=== PATIENT | male | born 1945 | race African-American/Black ===

== ENCOUNTER 2017-12-21 10:17 | Inpatient (IN) | payer MEDICARE, BC ==
[~2017-12-21] VITALS: Ht 182.9 cm; Wt 102.5 kg
[2017-12-21 11:08] LABS: HEMATOCRIT. 31.7 % (42.0-52.0); HEMOGLOBIN. 10.4 g/dL (14.0-18.0); MEAN CORPUSCULAR HEMOGLOBIN 30.9 pg (28.0-32.0); MEAN CORPUSCULAR VOLUME 93.9 fL (80.0-94.0); MEAN PLATELET VOLUME 6.4 fl (7.4-10.4); PLATELET 176 x1000/uL (130-400); RED BLOOD CELL COUNT 3.37 mill/uL (4.7-6.1); RED CELL DISTRIBUTION WIDTH 15.5 % (11.6-14.6)
[2017-12-21 11:15] LABS: INR 1.1; PROTHROMBIN TIME 11.7 sec (9.4-11.6)
[2017-12-21 11:20] LABS: CHLORIDE 82 mEq/L (98-107)
[2017-12-21 11:25] LABS: TROPONIN I < 0.02 ng/mL (0.00-0.04)
[2017-12-21 11:43] LABS: PLATELET ESTIMATE NORMAL
[2017-12-21] MEDS ORDERED: SODIUM CHLORIDE 0.9% 1,000 ML IV ONE (11:48)
[2017-12-21] MEDS ORDERED: IPRATROPIUM BROMIDE (0.02%) 0.5MG/2.5ML NEB HHN STA (11:48)
[2017-12-21] MEDS ORDERED: METHYLPREDNISOLONE SOD SUCC 125 MG/2 ML VIAL IV STA (11:48)
[2017-12-21] MEDS ORDERED: ALBUTEROL (0.083%) 2.5MG/3ML NEB HHN SCH (12:00)
[2017-12-21] MEDS ORDERED: TRAMADOL 50MG TABLET PO PRN (12:30)
[2017-12-21] MEDS ORDERED: ACETAMINOPHEN 325MG TABLET PO PRN (12:30)
[2017-12-21] MEDS ORDERED: IPRATROPIUM/ALBUTEROL 0.5-3(2.5)MG/3ML NEB INH PRN (12:30)
[2017-12-21] MEDS ORDERED: LORAZEPAM 0.5MG TABLET PO PRN (12:30)
[2017-12-21] MEDS ORDERED: MORPHINE SULFATE 4 MG/ML CPJ (NOT FOR IM USE) IV PRN (12:30)
[2017-12-21] MEDS ORDERED: LEVOFLOXACIN 500MG PREMIX 100 ML IV SCH (12:30)
[2017-12-21] MEDS ORDERED: DIPHENHYDRAMINE 50MG/ML VIAL IV PRN (12:30)
[2017-12-21] MEDS ORDERED: DOCUSATE SODIUM 100MG CAPSULE PO PRN (12:30)
[2017-12-21] MEDS ORDERED: MAGNESIUM 2 G PREMIX 50 ML IV ONE (12:30)
[2017-12-21] MEDS ORDERED: GUAIFENESIN 200MG/10ML SUGAR FREE UDC PO PRN (12:30)
[2017-12-21] MEDS ORDERED: MAGNESIUM/ALUMINUM HYDROXIDE/SIMETHICONE 30ML UDC PO PRN (12:30)
[2017-12-21] MEDS ORDERED: ONDANSETRON HCL 4MG/2ML VIAL IV PRN (12:30)
[2017-12-21 13:46] LABS: T4 FREE 1.21 ng/dL (0.76-1.46)
[2017-12-21 14:13] LABS: VITAMIN B12 SERUM 267 pg/mL (211-911)
[2017-12-21 14:24] LABS: FOLIC ACID (FOLATE) SERUM > 20.00 ng/mL (>5.38)
[2017-12-21] MEDS ORDERED: IOHEXOL-350 100 ML BOTTLE ONE (15:05)
[2017-12-21 16:48] LABS: BG BASE EXCESS -1.4 mmol/L (-2.0-2.0); BG CARBOXYHEMOGLOBIN 0.4 % (0.5-1.5); BG DEOXYHEMOGLOBIN 2.9 % (0.0-5.0); BG FRACTION INSPIRED OXYGEN 28; BG HCO3 ACT 22.2 mmol/L (22.0-26.0); BG METHEMOGLOBIN 0.3 % (0.0-1.5); BG OXYGEN SATURATION 97.1 % (92.0-98.5); BG OXYHEMOGLOBIN 96.4 % (94.0-97.0); BG PCO2 33.4 mmHg (35.0-45.0); BG PH 7.441 (7.350-7.450); BG PO2 97.5 mmHg (75.0-100.0); BG SAMPLE SITE RIGHT BRACHIAL; BG TOTAL HEMOGLOBIN 11.1 g/dL (12.0-18.0); BG VENT MODE NASAL CANNULA
[2017-12-21] MEDS ORDERED: NICOTINE 21MG PATCH TD SCH (17:00)
[2017-12-21 17:10] LABS: CREATINE KINASE 440 IU/L (39-308); CREATINE KINASE MB FRACTION 12.6 ng/mL (0.5-3.6); TROPONIN I < 0.02 ng/mL (0.00-0.04)
[2017-12-21 17:33] LABS: HEPATITIS B SURFACE ANTIGEN NEGATIVE
[2017-12-21 17:35] VITALS: BP 157/93
[2017-12-21 18:01] LABS: HEPATITIS B CORE AB IGM NEGATIVE
[2017-12-21 18:02] LABS: HEPATITIS A AB IGM NEGATIVE (NEGATIVE)
[2017-12-21] MEDS: METHYLPREDNISOLONE SOD SUCC 125 MG/2 ML VIAL IV SCH (18:41)
[2017-12-21] MEDS: ENOXAPARIN 40MG/0.4ML SYR SUBCUT SCH (18:43)
[2017-12-21] MEDS: DILTIAZEM HCL 60MG TABLET PO SCH (18:43)
[2017-12-21 20:00] VITALS: BP 139/84
[2017-12-21] MEDS: IPRATROPIUM/ALBUTEROL 0.5-3(2.5)MG/3ML NEB HHN SCH (21:13)
[2017-12-21] MEDS: CEFEPIME 2,000 MG in DEXT 5% WATER 100 ML IV SCH (21:27)
[2017-12-21] MEDS: ZOLPIDEM TARTRATE 5MG TABLET PO PRN (21:28)
[2017-12-21] MEDS: FAMOTIDINE 20MG/2ML VIAL IV SCH (21:28)
[2017-12-21] MEDS: GUAIFENESIN/DM 600MG/30MG ER TAB 12HR PO SCH (21:29)
[2017-12-21] MEDS: NICOTINE 21MG PATCH TD SCH (21:29)
[2017-12-21] MEDS: METRONIDAZOLE 500 MG PREMIX 100 ML IV SCH (22:43)
[2017-12-21 23:54] VITALS: BP 126/58
[2017-12-22 00:18] LABS: CREATINE KINASE 400 IU/L (39-308); CREATINE KINASE MB FRACTION 11.9 ng/mL (0.5-3.6); TROPONIN I < 0.02 ng/mL (0.00-0.04)
[2017-12-22] MEDS: IPRATROPIUM/ALBUTEROL 0.5-3(2.5)MG/3ML NEB HHN SCH ×7 (00:27→23:42)
[2017-12-22] MEDS: DILTIAZEM HCL 60MG TABLET PO SCH ×5 (01:45→23:28)
[2017-12-22] MEDS: METHYLPREDNISOLONE SOD SUCC 125 MG/2 ML VIAL IV SCH ×4 (01:46→23:24)
[2017-12-22 04:00] VITALS: BP 135/45
[2017-12-22] MEDS: METRONIDAZOLE 500 MG PREMIX 100 ML IV SCH ×3 (05:31→23:21)
[2017-12-22 07:31] LABS: CLARITY URINE CLEAR (CLEAR); COLOR URINE YELLOW (YELLOW); KETONES URINE NEGATIVE (NEGATIVE); LEUKOCYTE ESTERASE URINE NEGATIVE (NEGATIVE); NITRITE URINE NEGATIVE (NEGATIVE); OCCULT BLOOD URINE NEGATIVE (NEGATIVE); PROTEIN URINE NEGATIVE (NEGATIVE); SPECIFIC GRAVITY URINE 1.024 (1.005-1.030); UROBILINOGEN URINE 0.2 E.U./dL (0.2-1.0)
[2017-12-22 08:00] VITALS: BP 145/67
[2017-12-22 08:15] LABS: *AMPHETAMINES SCREEN URINE NEGATIVE (NEGATIVE); *BARBITURATES SCREEN URINE NEGATIVE (NEGATIVE); *BENZODIAZEPINES SCREEN URINE NEGATIVE (NEGATIVE); *COCAINE SCREEN URINE NEGATIVE (NEGATIVE); CANNABINOID URINE SCREEN NEGATIVE (NEGATIVE); METHADONE URINE SCREEN NEGATIVE (NEGATIVE); OPIATES URINE SCREEN NEGATIVE (NEGATIVE); PHENCYCLIDINE URINE SCREEN NEGATIVE (NEGATIVE)
[2017-12-22] MEDS: NICOTINE 21MG PATCH TD SCH (08:25)
[2017-12-22] MEDS: CEFEPIME 2,000 MG in DEXT 5% WATER 100 ML IV SCH ×2 (08:25→22:17)
[2017-12-22] MEDS: ASPIRIN 325MG EC TABLET PO SCH (08:27)
[2017-12-22] MEDS: FAMOTIDINE 20MG/2ML VIAL IV SCH ×2 (08:27→20:44)
[2017-12-22] MEDS: GUAIFENESIN/DM 600MG/30MG ER TAB 12HR PO SCH ×2 (08:27→20:44)
[2017-12-22 12:00] VITALS: BP 143/73
[2017-12-22] MEDS ORDERED: DEXTROSE 50% WATER 50ML SYRINGE IV PRN (12:00)
[2017-12-22] MEDS: BLOOD SUGAR DIAGNOSTIC STRIP TEST SCH ×3 (12:17→20:53)
[2017-12-22] MEDS: INSULIN LISPRO 100 UNITS/ML SUBCUT SCH ×3 (12:18→20:53)
[2017-12-22] MEDS ORDERED: IPRATROPIUM/ALBUTEROL 0.5-3(2.5)MG/3ML NEB INH SCH (14:30)
[2017-12-22] MEDS ORDERED: TERBUTALINE SULFATE 1MG/ML VIAL SUBCUT NR (14:30)
[2017-12-22 16:00] VITALS: BP 148/67
[2017-12-22] MEDS: ENOXAPARIN 40MG/0.4ML SYR SUBCUT SCH (17:37)
[2017-12-22] MEDS ORDERED: METHYLPREDNISOLONE SOD SUCC 40 MG/ML VIAL IV SCH (18:00)
[2017-12-22] MEDS ORDERED: LORA1TAB PO (18:38)
[2017-12-22] MEDS ORDERED: METO-539 PO (18:38)
[2017-12-22] MEDS ORDERED: OMEP40CA34 PO (18:38)
[2017-12-22] MEDS ORDERED: HYDR100T26 PO (18:38)
[2017-12-22] MEDS ORDERED: VALS320T2 PO (18:38)
[2017-12-22] MEDS ORDERED: GABA-290 PO (18:38)
[2017-12-22] MEDS ORDERED: DOXA8TAB81 PO (18:38)
[2017-12-22] MEDS ORDERED: CLAR10 PO (18:38)
[2017-12-22] MEDS ORDERED: HYDR25TA PO (18:38)
[2017-12-22] MEDS ORDERED: METF10002 PO (18:38)
[2017-12-22 19:56] VITALS: BP 124/61
[2017-12-22] MEDS ORDERED: FUROSEMIDE 100MG/10ML VIAL IVP SCH (20:00)
[2017-12-22] MEDS: ZOLPIDEM TARTRATE 5MG TABLET PO PRN (20:44)
[2017-12-22] MEDS: FUROSEMIDE 20MG/2ML VIAL IVP SCH (20:44)
[2017-12-22 23:45] VITALS: BP 136/71
[2017-12-23] MEDS ORDERED: MAGNESIUM 2 G PREMIX 50 ML IV NR (02:00)
[2017-12-23] MEDS: IPRATROPIUM/ALBUTEROL 0.5-3(2.5)MG/3ML NEB HHN SCH ×5 (03:37→20:44)
[2017-12-23 04:00] VITALS: BP 145/67
[2017-12-23] MEDS: METHYLPREDNISOLONE SOD SUCC 125 MG/2 ML VIAL IV SCH ×3 (05:50→18:26)
[2017-12-23] MEDS: DILTIAZEM HCL 60MG TABLET PO SCH ×3 (05:51→18:26)
[2017-12-23] MEDS: SPIRONOLACTONE 25MG TABLET PO SCH ×2 (05:51→18:26)
[2017-12-23] MEDS: BLOOD SUGAR DIAGNOSTIC STRIP TEST SCH ×4 (05:58→20:14)
[2017-12-23 06:38] LABS: HEMOGLOBIN. 10.3 g/dL (14.0-18.0); MEAN CORPUSCULAR HEMOGLOBIN 31.9 pg (28.0-32.0); MEAN CORPUSCULAR VOLUME 93.1 fL (80.0-94.0); MEAN PLATELET VOLUME 6.8 fl (7.4-10.4); PLATELET 168 x1000/uL (130-400); RED BLOOD CELL COUNT 3.22 mill/uL (4.7-6.1); RED CELL DISTRIBUTION WIDTH 15.4 % (11.6-14.6)
[2017-12-23 07:18] LABS: CHLORIDE 84 mEq/L (98-107)
[2017-12-23 08:20] VITALS: BP 131/66
[2017-12-23] MEDS: ASPIRIN 325MG EC TABLET PO SCH (08:43)
[2017-12-23] MEDS: GUAIFENESIN/DM 600MG/30MG ER TAB 12HR PO SCH ×2 (08:43→20:21)
[2017-12-23] MEDS: METRONIDAZOLE 500 MG PREMIX 100 ML IV SCH ×3 (08:45→21:18)
[2017-12-23] MEDS: FAMOTIDINE 20MG/2ML VIAL IV SCH ×2 (08:45→20:21)
[2017-12-23] MEDS: INSULIN LISPRO 100 UNITS/ML SUBCUT SCH ×4 (08:45→20:22)
[2017-12-23] MEDS: FUROSEMIDE 20MG/2ML VIAL IVP SCH ×2 (08:45→20:21)
[2017-12-23] MEDS: NICOTINE 21MG PATCH TD SCH (09:00)
[2017-12-23] MEDS: CEFEPIME 2,000 MG in DEXT 5% WATER 100 ML IV SCH ×2 (10:06→23:07)
[2017-12-23 10:28] LABS: PLATELET ESTIMATE NORMAL
[2017-12-23 12:35] VITALS: BP 133/70
[2017-12-23] MEDS ORDERED: TERBUTALINE SULFATE 1MG/ML VIAL SUBCUT NR (12:45)
[2017-12-23 17:29] VITALS: BP 152/77
[2017-12-23] MEDS: ENOXAPARIN 40MG/0.4ML SYR SUBCUT SCH (18:26)
[2017-12-23 20:00] VITALS: BP 132/74
[2017-12-24] VITALS: BP 130/49
[2017-12-24] MEDS: IPRATROPIUM/ALBUTEROL 0.5-3(2.5)MG/3ML NEB HHN SCH ×6 (00:10→21:51)
[2017-12-24] MEDS: METHYLPREDNISOLONE SOD SUCC 125 MG/2 ML VIAL IV SCH ×5 (00:41→23:55)
[2017-12-24] MEDS: DILTIAZEM HCL 60MG TABLET PO SCH ×5 (00:41→23:55)
[2017-12-24] MEDS: ZOLPIDEM TARTRATE 5MG TABLET PO PRN ×2 (00:46→23:55)
[2017-12-24 04:00] VITALS: BP 134/65
[2017-12-24] MEDS: SPIRONOLACTONE 25MG TABLET PO SCH ×2 (05:41→18:06)
[2017-12-24] MEDS: METRONIDAZOLE 500 MG PREMIX 100 ML IV SCH ×3 (05:41→21:04)
[2017-12-24 07:39] VITALS: BP 124/58
[2017-12-24] MEDS: BLOOD SUGAR DIAGNOSTIC STRIP TEST SCH ×4 (07:40→20:31)
[2017-12-24] MEDS: GUAIFENESIN/DM 600MG/30MG ER TAB 12HR PO SCH ×2 (10:07→20:31)
[2017-12-24] MEDS: ASPIRIN 325MG EC TABLET PO SCH (10:07)
[2017-12-24] MEDS: INSULIN LISPRO 100 UNITS/ML SUBCUT SCH ×4 (10:08→20:31)
[2017-12-24] MEDS: FAMOTIDINE 20MG/2ML VIAL IV SCH ×2 (10:56→20:31)
[2017-12-24] MEDS: CEFEPIME 2,000 MG in DEXT 5% WATER 100 ML IV SCH ×2 (10:56→23:01)
[2017-12-24] MEDS: FUROSEMIDE 20MG/2ML VIAL IVP SCH ×2 (10:56→20:31)
[2017-12-24 11:53] VITALS: BP 141/83
[2017-12-24] MEDS: NICOTINE 21MG PATCH TD SCH (12:33)
[2017-12-24 16:01] VITALS: BP 142/61
[2017-12-24] MEDS: ENOXAPARIN 40MG/0.4ML SYR SUBCUT SCH (18:06)
[2017-12-24 20:00] VITALS: BP 158/85
[2017-12-25] VITALS (7 sets, daily range): BP systolic 144–170; BP diastolic 69–92
[2017-12-25] MEDS: IPRATROPIUM/ALBUTEROL 0.5-3(2.5)MG/3ML NEB HHN SCH ×6 (00:19→21:12)
[2017-12-25] MEDS: METRONIDAZOLE 500 MG PREMIX 100 ML IV SCH ×3 (05:01→21:38)
[2017-12-25] MEDS: METHYLPREDNISOLONE SOD SUCC 125 MG/2 ML VIAL IV SCH ×2 (05:01→13:13)
[2017-12-25] MEDS: DILTIAZEM HCL 60MG TABLET PO SCH ×3 (05:02→18:40)
[2017-12-25] MEDS: SPIRONOLACTONE 25MG TABLET PO SCH ×2 (05:02→18:39)
[2017-12-25] MEDS: BLOOD SUGAR DIAGNOSTIC STRIP TEST SCH ×4 (07:40→21:34)
[2017-12-25] MEDS: FAMOTIDINE 20MG/2ML VIAL IV SCH ×2 (08:39→21:38)
[2017-12-25] MEDS: ASPIRIN 325MG EC TABLET PO SCH (08:40)
[2017-12-25] MEDS: NICOTINE 21MG PATCH TD SCH (08:40)
[2017-12-25] MEDS: FUROSEMIDE 20MG/2ML VIAL IVP SCH ×2 (08:40→21:38)
[2017-12-25] MEDS: GUAIFENESIN/DM 600MG/30MG ER TAB 12HR PO SCH ×2 (08:40→21:38)
[2017-12-25] MEDS: INSULIN LISPRO 100 UNITS/ML SUBCUT SCH ×4 (08:41→22:06)
[2017-12-25] MEDS: CEFEPIME 2,000 MG in DEXT 5% WATER 100 ML IV SCH ×2 (10:52→22:55)
[2017-12-25] MEDS: CLONIDINE 0.1MG TABLET PO PRN (17:27)
[2017-12-25] MEDS: ENOXAPARIN 40MG/0.4ML SYR SUBCUT SCH (18:40)
[2017-12-25] MEDS: METHYLPREDNISOLONE SOD SUCC 40 MG/ML VIAL IV SCH (22:06)
[2017-12-26] VITALS: BP 169/95
[2017-12-26] MEDS: DILTIAZEM HCL 60MG TABLET PO SCH ×3 (00:33→13:35)
[2017-12-26] MEDS: ZOLPIDEM TARTRATE 5MG TABLET PO PRN (00:33)
[2017-12-26] MEDS: IPRATROPIUM/ALBUTEROL 0.5-3(2.5)MG/3ML NEB HHN SCH ×4 (01:00→12:18)
[2017-12-26 04:00] VITALS: BP 146/78
[2017-12-26] MEDS: ACETYLCYSTEINE 100MG/ML 10% VIAL 4ML INH SCH ×3 (04:53→15:59)
[2017-12-26] MEDS: CEFEPIME 2,000 MG in DEXT 5% WATER 100 ML IV SCH (06:19)
[2017-12-26] MEDS: METRONIDAZOLE 500 MG PREMIX 100 ML IV SCH ×2 (06:19→13:36)
[2017-12-26] MEDS: SPIRONOLACTONE 25MG TABLET PO SCH (06:20)
[2017-12-26] MEDS: BLOOD SUGAR DIAGNOSTIC STRIP TEST SCH ×2 (06:20→13:17)
[2017-12-26] MEDS: METHYLPREDNISOLONE SOD SUCC 40 MG/ML VIAL IV SCH ×2 (06:23→13:36)
[2017-12-26 08:19] VITALS: BP 161/81
[2017-12-26] MEDS: FUROSEMIDE 20MG/2ML VIAL IVP SCH (09:23)
[2017-12-26] MEDS: CLONIDINE 0.1MG TABLET PO PRN (09:24)
[2017-12-26] MEDS: ASPIRIN 325MG EC TABLET PO SCH (09:24)
[2017-12-26] MEDS: FAMOTIDINE 20MG/2ML VIAL IV SCH (09:24)
[2017-12-26] MEDS: GUAIFENESIN/DM 600MG/30MG ER TAB 12HR PO SCH (09:24)
[2017-12-26] MEDS: INSULIN LISPRO 100 UNITS/ML SUBCUT SCH ×2 (09:26→13:36)
[2017-12-26] MEDS: NICOTINE 21MG PATCH TD SCH (09:33)
[2017-12-26 12:19] LABS: CHLORIDE 84 mEq/L (98-107)
[2017-12-26 12:25] VITALS: BP 127/67
[2017-12-26 13:57] VITALS: BP 154/91
[2017-12-26 16:15] VITALS: BP 154/91
[2017-12-27] MEDS ORDERED: PREDNISONE 20MG TABLET PO SCH (09:00)
== END 2017-12-26 16:52 | disposition home or self-care (01) | DRG 871 ==
LOC: ER 10:23 → SUPCPDRO 12:21 → 7WST 12:22 → ENRESERV 15:43
PROVIDERS: ADMIT Internal Medicine; ATTEND Internal Medicine
DX: A41.9 Sepsis, unspecified organism (principal); J96.00 Acute respiratory failure, unspecified whether with hypoxia or hypercapnia; J18.9 Pneumonia, unspecified organism; E87.3 Alkalosis; I11.0 Hypertensive heart disease with heart failure; D64.9 Anemia, unspecified; I50.40 Unspecified combined systolic (congestive) and diastolic (congestive) heart failure; E11.9 Type 2 diabetes mellitus without complications; E44.1 Mild protein-calorie malnutrition; E87.1 Hypo-osmolality and hyponatremia; J44.0 Chronic obstructive pulmonary disease with (acute) lower respiratory infection; J44.1 Chronic obstructive pulmonary disease with (acute) exacerbation; E66.9 Obesity, unspecified; E83.52 Hypercalcemia; F17.210 Nicotine dependence, cigarettes, uncomplicated; Z79.4 Long term (current) use of insulin; Z68.30 Body mass index [BMI] 30.0-30.9, adult
CPT/HCPCS: 36415; 36600; 71045; 71275; 80053; 80061; 80305; 81003; 82375; 82550; 82553; 82607; 82746; 82805; 82962; 83036; 83540; 83550; 83735; 83880; 84439; 84443; 84484; 85025; 85610; 86705; 86709; 86803; 87186; 87340; 93005; 93306; 93970; 94640; 96365; 96366; 96375; 97116; 97162; 97535; 99285; J0692; J1650; J1815; J1940; J1956; J2920; J2930; J3105; J3475; J3490; J7030; J7050; J7060; J7608; J7611; J7620; Q9967

== ENCOUNTER → 2018-03-14 | Outpatient (CLI) | payer MEDICARE, BC ==
[~2018-03-14] MED LIST: ALBUTEROL (0.083%) 2.5MG/3ML NEB ONE; CLAR10 PO; DOXA8TAB81 PO; GABA-290 PO; HYDR100T26 PO; HYDR25TA PO; LORA1TAB PO; METF10004 PO; METO-539 PO; OMEP40CA34 PO; VALS320T2 PO
== END | disposition home or self-care (01) ==
LOC: PF 13:15
PROVIDERS: ATTEND Specialist
DX: E04.2 Nontoxic multinodular goiter (principal)
CPT/HCPCS: 94060; 94727; 94729; J7611

== ENCOUNTER 2018-05-13 20:48 | Inpatient (IN) | payer MEDICARE, BC ==
[~2018-05-13] VITALS: Ht 182.9 cm; Wt 104.3 kg
[~2018-05-13 20:48] MED LIST changes: -ALBUTEROL (0.083%) 2.5MG/3ML NEB ONE
[2018-05-13] MEDS ORDERED: LEVOFLOXACIN 750MG PREMIX 150 ML IV ONE (21:30)
[2018-05-13] MEDS ORDERED: SODIUM CHLORIDE 0.9% 1000ML BAG (SEPSIS BOLUS) IV ONE (21:30)
[2018-05-13] MEDS ORDERED: ACETAMINOPHEN 325MG TABLET PO ONE (21:30)
[2018-05-13 22:00] LABS: BASOPHILS % 0.3 % (0.0-2.0); EOSINOPHILS % 0.1 % (0.0-5.0); HEMATOCRIT. 27.3 % (42.0-52.0); HEMOGLOBIN. 8.9 g/dL (14.0-18.0); LYMPHOCYTES % 7.5 % (20.0-50.0); MEAN CORPUSCULAR HEMOGLOBIN 29.4 pg (28.0-32.0); MEAN CORPUSCULAR VOLUME 90.3 fL (80.0-94.0); MEAN PLATELET VOLUME 7.1 fl (7.4-10.4); MONOCYTES % 6.4 % (2.0-8.0); NEUTROPHILS % 85.7 % (40.0-76.0); PLATELET 256 x1000/uL (130-400); RED BLOOD CELL COUNT 3.03 mill/uL (4.7-6.1); RED CELL DISTRIBUTION WIDTH 14.8 % (11.6-14.6)
[2018-05-13 22:07] LABS: CHLORIDE 102 mEq/L (98-107)
[2018-05-13 22:09] LABS: INR 1.2; PARTIAL THROMBOPLASTIN TIME 30.1 sec (23.4-31.0); PROTHROMBIN TIME 12.4 sec (9.4-11.6)
[2018-05-13 22:58] LABS: CLARITY URINE CLOUDY (CLEAR); COLOR URINE YELLOW (YELLOW); KETONES URINE NEGATIVE (NEGATIVE); LEUKOCYTE ESTERASE URINE 3+ (NEGATIVE); NITRITE URINE NEGATIVE (NEGATIVE); OCCULT BLOOD URINE 1+ (NEGATIVE); PROTEIN URINE NEGATIVE (NEGATIVE); SPECIFIC GRAVITY URINE 1.012 (1.005-1.030); UROBILINOGEN URINE 0.2 E.U./dL (0.2-1.0)
[2018-05-14] MEDS ORDERED: DIPHENHYDRAMINE 50MG/ML VIAL IV PRN (03:30)
[2018-05-14] MEDS ORDERED: ONDANSETRON HCL 4MG/2ML VIAL IV PRN (03:30)
[2018-05-14] MEDS ORDERED: LEVOFLOXACIN 500MG PREMIX 100 ML IV SCH ×2 (03:30→22:00)
[2018-05-14] MEDS ORDERED: DEXTROSE 50% WATER 50ML SYRINGE IV PRN (03:30)
[2018-05-14] MEDS ORDERED: IPRATROPIUM/ALBUTEROL 0.5-3(2.5)MG/3ML NEB HHN PRN ×2 (05:15→21:45)
[2018-05-14 05:20] VITALS: BP 187/65
[2018-05-14] MEDS: HYDRALAZINE HCL 50MG TABLET PO SCH ×3 (05:32→22:00)
[2018-05-14] MEDS: GABAPENTIN 300MG CAPSULE PO SCH ×3 (05:32→21:31)
[2018-05-14] MEDS: SODIUM CHLORIDE 0.9% INJ 3ML FLUSH IVF SCH ×3 (05:32→21:32)
[2018-05-14] MEDS: METOPROLOL TARTRATE 50MG TABLET PO SCH ×3 (05:33→23:10)
[2018-05-14] MEDS ORDERED: POTASSIUM CHLORIDE 20MEQ TABLET SR PO NR (06:00)
[2018-05-14] MEDS: BLOOD SUGAR DIAGNOSTIC STRIP TEST SCH ×4 (07:01→21:29)
[2018-05-14] MEDS: INSULIN LISPRO 100 UNITS/ML SUBCUT SCH ×7 (07:40→21:00)
[2018-05-14 08:00] VITALS: BP 139/54
[2018-05-14] MEDS: METFORMIN HCL 500MG TABLET PO SCH ×2 (08:37→17:50)
[2018-05-14] MEDS: OMEPRAZOLE 20MG CAPSULE EXTENDED RELEASE PO SCH ×2 (08:37→21:31)
[2018-05-14] MEDS ORDERED: ENOXAPARIN 40MG/0.4ML SYR SUBCUT SCH (09:00)
[2018-05-14 12:00] VITALS: BP 122/57
[2018-05-14] MEDS: ACETAMINOPHEN 325MG TABLET PO PRN ×2 (12:08→23:11)
[2018-05-14 16:00] VITALS: BP 101/40
[2018-05-14] MEDS ORDERED: VANCOMYCIN 2,000 MG in DEXT 5% WATER 500 ML IV NR (16:30)
[2018-05-14] MEDS: CEFTAZIDIME PENTAHYDRATE 1 G in DEXTROSE 5% WATER 50 ML IV SCH ×2 (16:40→23:11)
[2018-05-14 20:00] VITALS: BP 110/50
[2018-05-14] MEDS: DOXAZOSIN MESYLATE 4MG TABLET PO SCH (21:00)
[2018-05-14] MEDS: ENOXAPARIN 30MG/0.3ML SYR SUBCUT SCH (21:29)
[2018-05-15] VITALS: BP 131/69
[2018-05-15] MEDS: IPRATROPIUM/ALBUTEROL 0.5-3(2.5)MG/3ML NEB HHN SCH ×4 (01:17→20:30)
[2018-05-15 04:00] VITALS: BP 126/70
[2018-05-15] MEDS: SODIUM CHLORIDE 0.9% INJ 3ML FLUSH IVF SCH ×3 (06:04→21:01)
[2018-05-15] MEDS: HYDRALAZINE HCL 50MG TABLET PO SCH ×3 (06:04→21:01)
[2018-05-15] MEDS: GABAPENTIN 300MG CAPSULE PO SCH ×3 (06:04→21:02)
[2018-05-15] MEDS: BLOOD SUGAR DIAGNOSTIC STRIP TEST SCH ×4 (07:12→20:54)
[2018-05-15 07:15] LABS: BASOPHILS % 0.4 % (0.0-2.0); EOSINOPHILS % 0.8 % (0.0-5.0); HEMATOCRIT. 25.9 % (42.0-52.0); HEMOGLOBIN. 8.5 g/dL (14.0-18.0); LYMPHOCYTES % 16.3 % (20.0-50.0); MEAN CORPUSCULAR HEMOGLOBIN 29.7 pg (28.0-32.0); MEAN CORPUSCULAR VOLUME 90.1 fL (80.0-94.0); MEAN PLATELET VOLUME 7.2 fl (7.4-10.4); NEUTROPHILS % 71.5 % (40.0-76.0); PLATELET 226 x1000/uL (130-400); RED BLOOD CELL COUNT 2.88 mill/uL (4.7-6.1); RED CELL DISTRIBUTION WIDTH 14.8 % (11.6-14.6)
[2018-05-15 07:21] LABS: CHLORIDE 104 mEq/L (98-107)
[2018-05-15 08:00] VITALS: BP 112/58
[2018-05-15] MEDS: INSULIN LISPRO 100 UNITS/ML SUBCUT SCH ×7 (08:10→20:55)
[2018-05-15] MEDS: GUAIFENESIN 600MG ER TABLET PO SCH ×2 (09:44→20:54)
[2018-05-15] MEDS: METFORMIN HCL 500MG TABLET PO SCH ×2 (09:45→17:43)
[2018-05-15] MEDS: OMEPRAZOLE 20MG CAPSULE EXTENDED RELEASE PO SCH ×2 (09:45→20:54)
[2018-05-15] MEDS: CEFTAZIDIME PENTAHYDRATE 1 G in DEXTROSE 5% WATER 50 ML IV SCH ×2 (09:49→16:13)
[2018-05-15] MEDS: ENOXAPARIN 30MG/0.3ML SYR SUBCUT SCH ×2 (09:51→20:54)
[2018-05-15] MEDS: METOPROLOL TARTRATE 50MG TABLET PO SCH ×2 (09:52→20:54)
[2018-05-15] MEDS ORDERED: VANCOMYCIN 1250MG in DEXTROSE 5% WATER 250ML IV SCH (10:30)
[2018-05-15 12:00] VITALS: BP 126/63
[2018-05-15] MEDS ORDERED: POTASSIUM PHOS,M-BASIC-D-BASIC 30 MMOL in SODIUM CHLORIDE 0.9% 500 ML IV ONE (12:00)
[2018-05-15] MEDS ORDERED: MAGNESIUM 4 G PREMIX 100 ML IV ONE (13:00)
[2018-05-15 16:00] VITALS: BP 124/60
[2018-05-15 16:01] LABS: TOTAL IRON BINDING CAPACITY 210 ug/dL (250-450)
[2018-05-15 16:26] LABS: VITAMIN B12 SERUM 248 pg/mL (211-911)
[2018-05-15 20:00] VITALS: BP 103/47
[2018-05-15] MEDS: VANCOMYCIN 1 G PREMIX 200 ML IV SCH (20:53)
[2018-05-15] MEDS: DOXAZOSIN MESYLATE 4MG TABLET PO SCH (20:53)
[2018-05-16] VITALS (7 sets, daily range): BP systolic 102–136; BP diastolic 44–73
[2018-05-16] MEDS: CEFTAZIDIME PENTAHYDRATE 1 G in DEXTROSE 5% WATER 50 ML IV SCH ×2 (00:15→08:45)
[2018-05-16] MEDS: IPRATROPIUM/ALBUTEROL 0.5-3(2.5)MG/3ML NEB HHN SCH ×4 (00:33→21:25)
[2018-05-16] MEDS: HYDRALAZINE HCL 50MG TABLET PO SCH ×3 (06:00→23:05)
[2018-05-16] MEDS: SODIUM CHLORIDE 0.9% INJ 3ML FLUSH IVF SCH ×3 (06:43→21:33)
[2018-05-16] MEDS: GABAPENTIN 300MG CAPSULE PO SCH ×3 (06:46→23:05)
[2018-05-16] MEDS: OMEPRAZOLE 20MG CAPSULE EXTENDED RELEASE PO SCH (06:46)
[2018-05-16] MEDS: BLOOD SUGAR DIAGNOSTIC STRIP TEST SCH ×4 (06:48→21:32)
[2018-05-16] MEDS: INSULIN LISPRO 100 UNITS/ML SUBCUT SCH ×6 (07:40→21:00)
[2018-05-16] MEDS: GUAIFENESIN 600MG ER TABLET PO SCH ×2 (08:45→21:15)
[2018-05-16] MEDS: METFORMIN HCL 500MG TABLET PO SCH ×2 (08:45→18:23)
[2018-05-16] MEDS: METOPROLOL TARTRATE 50MG TABLET PO SCH ×2 (08:46→21:15)
[2018-05-16] MEDS: ENOXAPARIN 30MG/0.3ML SYR SUBCUT SCH ×2 (08:48→21:17)
[2018-05-16 10:39] LABS: BASOPHILS % 0.3 % (0.0-2.0); EOSINOPHILS % 9.2 % (0.0-5.0); HEMATOCRIT. 27.3 % (42.0-52.0); HEMOGLOBIN. 8.8 g/dL (14.0-18.0); LYMPHOCYTES % 19.4 % (20.0-50.0); MEAN PLATELET VOLUME 7.4 fl (7.4-10.4); MONOCYTES % 7.8 % (2.0-8.0); NEUTROPHILS % 63.3 % (40.0-76.0); PLATELET 225 x1000/uL (130-400); RED BLOOD CELL COUNT 3.04 mill/uL (4.7-6.1); RED CELL DISTRIBUTION WIDTH 14.6 % (11.6-14.6)
[2018-05-16] MEDS: VANCOMYCIN 1 G PREMIX 200 ML IV SCH (10:40)
[2018-05-16 10:58] LABS: CHLORIDE 101 mEq/L (98-107)
[2018-05-16] MEDS ORDERED: POTASSIUM CHLORIDE 20MEQ TABLET SR PO NR (12:00)
[2018-05-16] MEDS ORDERED: POTASSIUM PHOS,M-BASIC-D-BASIC 20 MMOL in DEXT 5% WATER 243.3333 ML IV NR (13:00)
[2018-05-16] MEDS ORDERED: MAGNESIUM 4 G PREMIX 100 ML IV NR (13:00)
[2018-05-16] MEDS: CEPHALEXIN 500MG CAPSULE PO SCH ×2 (14:49→21:15)
[2018-05-16] MEDS ORDERED: TEMAZEPAM 15MG CAPSULE PO SCH (21:00)
[2018-05-16] MEDS: DOXAZOSIN MESYLATE 4MG TABLET PO SCH (21:16)
[2018-05-17] MEDS: IPRATROPIUM/ALBUTEROL 0.5-3(2.5)MG/3ML NEB HHN SCH ×2 (01:18→07:30)
[2018-05-17 04:30] VITALS: BP 112/54
[2018-05-17 05:41] LABS: BASOPHILS % 0.4 % (0.0-2.0); EOSINOPHILS % 7.4 % (0.0-5.0); HEMATOCRIT. 24.1 % (42.0-52.0); MEAN CORPUSCULAR HEMOGLOBIN 29.5 pg (28.0-32.0); MEAN CORPUSCULAR VOLUME 89.3 fL (80.0-94.0); MONOCYTES % 10.7 % (2.0-8.0); NEUTROPHILS % 61.5 % (40.0-76.0); PLATELET 215 x1000/uL (130-400); RED CELL DISTRIBUTION WIDTH 14.3 % (11.6-14.6)
[2018-05-17 05:54] LABS: CHLORIDE 103 mEq/L (98-107)
[2018-05-17] MEDS: HYDRALAZINE HCL 50MG TABLET PO SCH ×2 (06:00→13:29)
[2018-05-17] MEDS: GABAPENTIN 300MG CAPSULE PO SCH ×2 (06:29→13:28)
[2018-05-17] MEDS: CEPHALEXIN 500MG CAPSULE PO SCH ×3 (06:29→13:29)
[2018-05-17] MEDS: SODIUM CHLORIDE 0.9% INJ 3ML FLUSH IVF SCH ×2 (06:29→13:19)
[2018-05-17] MEDS: BLOOD SUGAR DIAGNOSTIC STRIP TEST SCH ×2 (06:32→13:19)
[2018-05-17] MEDS: INSULIN LISPRO 100 UNITS/ML SUBCUT SCH ×2 (06:34→13:10)
[2018-05-17 08:00] VITALS: BP 115/59
[2018-05-17] MEDS ORDERED: FAMOTIDINE 20MG TABLET PO SCH (09:00)
[2018-05-17] MEDS: METFORMIN HCL 500MG TABLET PO SCH (09:01)
[2018-05-17] MEDS: GUAIFENESIN 600MG ER TABLET PO SCH (09:01)
[2018-05-17] MEDS: METOPROLOL TARTRATE 50MG TABLET PO SCH (09:01)
[2018-05-17] MEDS: ENOXAPARIN 30MG/0.3ML SYR SUBCUT SCH (09:02)
[2018-05-17 12:00] VITALS: BP 127/73
[2018-05-17 15:28] VITALS: BP 127/73
[2018-05-17 16:00] VITALS: BP 130/67
== END 2018-05-17 17:00 | disposition home or self-care (01) | DRG 871 ==
LOC: ER 22:58 → 7WST 23:42 → ENRESERV 05-14 01:04 → CANRESERV 05-14 01:04 → ENRESERV 05-14 03:05
PROVIDERS: ADMIT Internal Medicine; ATTEND Internal Medicine
DX: A41.9 Sepsis, unspecified organism (principal); J18.9 Pneumonia, unspecified organism; J44.0 Chronic obstructive pulmonary disease with (acute) lower respiratory infection; N12 Tubulo-interstitial nephritis, not specified as acute or chronic; E11.40 Type 2 diabetes mellitus with diabetic neuropathy, unspecified; I10 Essential (primary) hypertension; E83.42 Hypomagnesemia; D64.9 Anemia, unspecified; E83.39 Other disorders of phosphorus metabolism; Z96.652 Presence of left artificial knee joint; F17.200 Nicotine dependence, unspecified, uncomplicated; I25.10 Atherosclerotic heart disease of native coronary artery without angina pectoris; J20.9 Acute bronchitis, unspecified; Z82.49 Family history of ischemic heart disease and other diseases of the circulatory system; Z91.041 Radiographic dye allergy status; Z79.899 Other long term (current) drug therapy; Z87.19 Personal history of other diseases of the digestive system
CPT/HCPCS: 36415; 71045; 80048; 80053; 81003; 82607; 82962; 83540; 83550; 83605; 83735; 83880; 84100; 84484; 85025; 85610; 85730; 86850; 86900; 87040; 87077; 87086; 87186; 93005; 96365; 96366; 99291; J0713; J1200; J1650; J1815; J1956; J2405; J3370; J3475; J3490; J7030; J7040; J7060; J7620

== ENCOUNTER 2018-07-16 13:13 | Inpatient (IN) | payer MEDICARE, BC ==
[~2018-07-16] VITALS: Ht 182.9 cm; Wt 102.5 kg
[2018-07-16 14:40] LABS: HEMATOCRIT. 29.9 % (42.0-52.0); HEMOGLOBIN. 9.8 g/dL (14.0-18.0); MEAN CORPUSCULAR HEMOGLOBIN 29.5 pg (28.0-32.0); MEAN CORPUSCULAR VOLUME 90.2 fL (80.0-94.0); MEAN PLATELET VOLUME 6.9 fl (7.4-10.4); PLATELET 254 x1000/uL (130-400); RED BLOOD CELL COUNT 3.31 mill/uL (4.7-6.1); RED CELL DISTRIBUTION WIDTH 14.4 % (11.6-14.6)
[2018-07-16 14:46] LABS: CHLORIDE 106 mEq/L (98-107)
[2018-07-16] MEDS ORDERED: FUROSEMIDE 20MG/2ML VIAL IVP ONE (15:15)
[2018-07-16] MEDS ORDERED: ALBUTEROL (0.083%) 2.5MG/3ML NEB HHN ONE (15:15)
[2018-07-16] MEDS ORDERED: ASPIRIN 81MG TABLET PO ONE (15:15)
[2018-07-16] MEDS ORDERED: METHYLPREDNISOLONE SOD SUCC 125 MG/2 ML VIAL IV ONE (15:15)
[2018-07-16 15:27] LABS: PLATELET ESTIMATE NORMAL
[2018-07-16] MEDS ORDERED: CEFTRIAXONE 1 G PREMIX 50 ML IV ONE (16:00)
[2018-07-16] MEDS ORDERED: ASPIRIN 81MG TABLET ONE (19:24)
[2018-07-16] MEDS ORDERED: METHYLPREDNISOLONE SOD SUCC 125 MG/2 ML VIAL ONE (19:25)
[2018-07-16] MEDS ORDERED: FUROSEMIDE 20MG/2ML VIAL ONE (19:27)
[2018-07-16] MEDS: AZITHROMYCIN 500 MG in DEXT 5% WATER 250 ML IV SCH (20:22)
[2018-07-16 21:35] VITALS: BP 123/69
[2018-07-16 22:00] VITALS: BP 123/69
[2018-07-16] MEDS ORDERED: ACETAMINOPHEN 325MG TABLET PO PRN (22:15)
[2018-07-16] MEDS ORDERED: IPRATROPIUM/ALBUTEROL 0.5-3(2.5)MG/3ML NEB INH PRN (22:15)
[2018-07-16] MEDS ORDERED: DEXTROSE 50% WATER 50ML SYRINGE IV PRN (22:15)
[2018-07-16] MEDS ORDERED: CLONIDINE 0.1MG TABLET PO PRN (22:15)
[2018-07-16] MEDS ORDERED: MAGNESIUM/ALUMINUM HYDROXIDE/SIMETHICONE 30ML UDC PO PRN (22:15)
[2018-07-16] MEDS ORDERED: DIPHENHYDRAMINE 50MG/ML VIAL IV PRN (22:15)
[2018-07-16] MEDS ORDERED: ONDANSETRON HCL 4MG/2ML INJ IV PRN (22:15)
[2018-07-16] MEDS ORDERED: LORAZEPAM 1MG TABLET PO PRN (22:45)
[2018-07-16] MEDS ORDERED: TEMAZEPAM 15MG CAPSULE PO PRN (22:45)
[2018-07-16] MEDS: LEVOFLOXACIN 500MG PREMIX 100 ML IV SCH (23:19)
[2018-07-16] MEDS: IPRATROPIUM/ALBUTEROL 0.5-3(2.5)MG/3ML NEB HHN SCH (23:41)
[2018-07-17] VITALS: BP 145/74
[2018-07-17 04:00] VITALS: BP 153/76
[2018-07-17 06:10] LABS: HEMATOCRIT. 27.4 % (42.0-52.0); MEAN CORPUSCULAR HEMOGLOBIN 29.2 pg (28.0-32.0); MEAN CORPUSCULAR VOLUME 89.3 fL (80.0-94.0); MEAN PLATELET VOLUME 7.2 fl (7.4-10.4); PLATELET 251 x1000/uL (130-400); RED BLOOD CELL COUNT 3.07 mill/uL (4.7-6.1); RED CELL DISTRIBUTION WIDTH 14.6 % (11.6-14.6)
[2018-07-17] MEDS: BLOOD SUGAR DIAGNOSTIC STRIP TEST SCH ×4 (06:25→20:18)
[2018-07-17] MEDS: INSULIN LISPRO 100 UNITS/ML SUBCUT SCH ×4 (06:25→20:19)
[2018-07-17] MEDS: SODIUM CHLORIDE 0.9% INJ 3ML FLUSH IVF SCH ×3 (06:27→23:25)
[2018-07-17] MEDS: GABAPENTIN 300MG CAPSULE PO SCH ×3 (06:27→23:24)
[2018-07-17 06:39] LABS: CHLORIDE 107 mEq/L (98-107)
[2018-07-17 08:00] VITALS: BP 149/47
[2018-07-17] MEDS: GUAIFENESIN 600MG ER TABLET PO SCH ×2 (08:25→20:18)
[2018-07-17] MEDS: IPRATROPIUM/ALBUTEROL 0.5-3(2.5)MG/3ML NEB HHN SCH ×2 (08:55→16:20)
[2018-07-17 12:00] VITALS: BP 168/86
[2018-07-17 16:00] VITALS: BP 143/73
[2018-07-17] MEDS ORDERED: NICOTINE 21MG PATCH TD NR (17:15)
[2018-07-17 17:23] LABS: PLATELET ESTIMATE NORMAL
[2018-07-17] MEDS: METFORMIN HCL 500MG TABLET PO SCH (17:57)
[2018-07-17] MEDS: AZITHROMYCIN 500 MG in DEXT 5% WATER 250 ML IV SCH (17:58)
[2018-07-17 20:00] VITALS: BP 160/76
[2018-07-17] MEDS: BUDESONIDE 0.5MG/2ML NEB HHN SCH (20:03)
[2018-07-17] MEDS: METOPROLOL TARTRATE 25MG TABLET PO SCH (20:18)
[2018-07-17] MEDS ORDERED: DOXAZOSIN MESYLATE 4MG TABLET PO SCH (21:00)
[2018-07-17] MEDS ORDERED: OMEPRAZOLE 20MG CAPSULE EXTENDED RELEASE PO SCH (21:00)
[2018-07-17 22:34] LABS: CLARITY URINE CLEAR (CLEAR); COLOR URINE YELLOW (YELLOW); KETONES URINE NEGATIVE (NEGATIVE); LEUKOCYTE ESTERASE URINE NEGATIVE (NEGATIVE); NITRITE URINE NEGATIVE (NEGATIVE); OCCULT BLOOD URINE NEGATIVE (NEGATIVE); PROTEIN URINE NEGATIVE (NEGATIVE); SPECIFIC GRAVITY URINE 1.008 (1.005-1.030); UROBILINOGEN URINE 0.2 E.U./dL (0.2-1.0)
[2018-07-17 23:08] LABS: *AMPHETAMINES SCREEN URINE NEGATIVE (NEGATIVE); *BARBITURATES SCREEN URINE NEGATIVE (NEGATIVE); OPIATES URINE SCREEN NEGATIVE (NEGATIVE)
[2018-07-17 23:09] LABS: *BENZODIAZEPINES SCREEN URINE NEGATIVE (NEGATIVE); *COCAINE SCREEN URINE NEGATIVE (NEGATIVE); CANNABINOID URINE SCREEN NEGATIVE (NEGATIVE); METHADONE URINE SCREEN NEGATIVE (NEGATIVE); PHENCYCLIDINE URINE SCREEN NEGATIVE (NEGATIVE)
[2018-07-17] MEDS: HYDRALAZINE HCL 50MG TABLET PO SCH (23:25)
[2018-07-17] MEDS: LEVOFLOXACIN 500MG PREMIX 100 ML IV SCH (23:25)
[2018-07-18] VITALS: BP 131/74
[2018-07-18] MEDS: IPRATROPIUM/ALBUTEROL 0.5-3(2.5)MG/3ML NEB HHN SCH ×4 (00:04→15:04)
[2018-07-18 04:00] VITALS: BP 120/57
[2018-07-18] MEDS: HYDRALAZINE HCL 50MG TABLET PO SCH ×2 (05:57→13:09)
[2018-07-18] MEDS: GABAPENTIN 300MG CAPSULE PO SCH ×2 (05:57→13:08)
[2018-07-18] MEDS: BLOOD SUGAR DIAGNOSTIC STRIP TEST SCH ×2 (05:58→12:00)
[2018-07-18] MEDS: SODIUM CHLORIDE 0.9% INJ 3ML FLUSH IVF SCH ×2 (05:58→13:09)
[2018-07-18] MEDS: INSULIN LISPRO 100 UNITS/ML SUBCUT SCH ×2 (05:58→12:00)
[2018-07-18 06:37] LABS: BASOPHILS % 0.4 % (0.0-2.0); EOSINOPHILS % 0.7 % (0.0-5.0); HEMOGLOBIN. 8.8 g/dL (14.0-18.0); LYMPHOCYTES % 16.2 % (20.0-50.0); MEAN CORPUSCULAR HEMOGLOBIN 30.2 pg (28.0-32.0); MEAN CORPUSCULAR VOLUME 89.1 fL (80.0-94.0); MEAN PLATELET VOLUME 7.3 fl (7.4-10.4); MONOCYTES % 8.4 % (2.0-8.0); NEUTROPHILS % 74.3 % (40.0-76.0); PLATELET 241 x1000/uL (130-400); RED BLOOD CELL COUNT 2.92 mill/uL (4.7-6.1); RED CELL DISTRIBUTION WIDTH 14.4 % (11.6-14.6)
[2018-07-18 06:47] LABS: CHLORIDE 107 mEq/L (98-107)
[2018-07-18 07:00] LABS: CREATINE KINASE 60 IU/L (39-308)
[2018-07-18 08:00] VITALS: BP 111/69
[2018-07-18] MEDS: BUDESONIDE 0.5MG/2ML NEB HHN SCH (08:03)
[2018-07-18] MEDS: GUAIFENESIN 600MG ER TABLET PO SCH (08:49)
[2018-07-18] MEDS: METFORMIN HCL 500MG TABLET PO SCH (08:49)
[2018-07-18] MEDS: METOPROLOL TARTRATE 25MG TABLET PO SCH (08:50)
[2018-07-18] MEDS ORDERED: NICOTINE 21MG PATCH TD SCH (09:00)
[2018-07-18 12:00] VITALS: BP 127/63
[2018-07-18 15:46] VITALS: BP 131/64
[2018-07-18 16:00] VITALS: BP 131/64
== END 2018-07-18 17:10 | disposition home or self-care (01) | DRG 871 ==
LOC: ER 13:13 → 5WST 15:55 → EDBEDREQ 15:58 → ENRESERV 20:00
PROVIDERS: ADMIT Internal Medicine; ATTEND Internal Medicine
DX: A41.9 Sepsis, unspecified organism (principal); J96.00 Acute respiratory failure, unspecified whether with hypoxia or hypercapnia; J44.1 Chronic obstructive pulmonary disease with (acute) exacerbation; N39.0 Urinary tract infection, site not specified; I11.0 Hypertensive heart disease with heart failure; I25.10 Atherosclerotic heart disease of native coronary artery without angina pectoris; M19.90 Unspecified osteoarthritis, unspecified site; Z96.652 Presence of left artificial knee joint; E11.40 Type 2 diabetes mellitus with diabetic neuropathy, unspecified; F17.210 Nicotine dependence, cigarettes, uncomplicated; F41.9 Anxiety disorder, unspecified; I50.9 Heart failure, unspecified; Z85.46 Personal history of malignant neoplasm of prostate; Z87.01 Personal history of pneumonia (recurrent); Z92.3 Personal history of irradiation; Z88.2 Allergy status to sulfonamides; Z91.041 Radiographic dye allergy status; Z98.49 Cataract extraction status, unspecified eye; Z80.42 Family history of malignant neoplasm of prostate; Z83.3 Family history of diabetes mellitus; Z81.8 Family history of other mental and behavioral disorders; Z79.899 Other long term (current) drug therapy
CPT/HCPCS: 36415; 71045; 80048; 80053; 80305; 81003; 82550; 82962; 83690; 83880; 84484; 85025; 87040; 87086; 93005; 93970; 94640; 96374; 96375; 99285; J0456; J0696; J1940; J1956; J2930; J7050; J7060; J7620; J7626

== ENCOUNTER 2023-01-12 17:18 | Emergency (ER) | payer MEDICARE ==
[~2023-01-12] VITALS: Ht 180.3 cm; Wt 113.0 kg
[~2023-01-12 17:18] MED LIST changes: -CLAR10 PO; +FURO80TA3 PO; -HYDR25TA PO; -LORA1TAB PO; +LOSA100T32 PO; +MAGN64TA9 PO; +METF-416 PO; -METF10004 PO; +OMEP40CA20 PO; -OMEP40CA34 PO; +TAMS-11 MT; -VALS320T2 PO
[2023-01-12] MEDS ORDERED: DIPHENHYDRAMINE 50MG CAPSULE PO ONE (17:30)
[2023-01-12] MEDS ORDERED: PREDNISONE 20MG TABLET PO ONE (17:30)
[2023-01-12 17:34] VITALS: BP 108/66
[2023-01-12] MEDS ORDERED: DIPHENHYDRAMINE 25MG CAPSULE PO NR (18:00)
[2023-01-12] MEDS ORDERED: B50 MT (18:54)
[2023-01-12] MEDS ORDERED: P50 MT (18:54)
[2023-01-12] MEDS ORDERED: LEVO750T68 MT (19:16)
== END 2023-01-12 19:16 | disposition home or self-care (01) ==
LOC: ER 17:18
DX: L50.9 Urticaria, unspecified (principal); T36.8X5A Adverse effect of other systemic antibiotics, initial encounter; E11.9 Type 2 diabetes mellitus without complications; I10 Essential (primary) hypertension; J44.9 Chronic obstructive pulmonary disease, unspecified; Z88.2 Allergy status to sulfonamides; Z91.041 Radiographic dye allergy status; Z79.84 Long term (current) use of oral hypoglycemic drugs; Y92.018 Other place in single-family (private) house as the place of occurrence of the external cause
CPT/HCPCS: 99283; J7512; Q0163

== ENCOUNTER 2023-01-22 14:35 | Inpatient (IN) | payer MEDICARE ==
[~2023-01-22] VITALS: Ht 182.9 cm; Wt 89.8 kg
[~2023-01-22 14:35] MED LIST changes: +B50 MT; +LEVO750T68 MT; +P50 MT
[2023-01-22] MEDS ORDERED: ONDANSETRON HCL 4MG/2ML INJ IV ONE (15:00)
[2023-01-22] MEDS ORDERED: SODIUM CHLORIDE 0.9% 1,000 ML IV ONE (15:00)
[2023-01-22 16:15] LABS: CHLORIDE 115 mEq/L (98-107)
[2023-01-22] MEDS ORDERED: PIPERACILLIN/TAZ 3.375G PREMIX 50 ML IV ONE (17:00)
[2023-01-22 17:47] LABS: CLARITY URINE CLEAR (CLEAR); COLOR URINE YELLOW (YELLOW); KETONES URINE NEGATIVE (NEGATIVE); LEUKOCYTE ESTERASE URINE NEGATIVE (NEGATIVE); NITRITE URINE NEGATIVE (NEGATIVE); OCCULT BLOOD URINE NEGATIVE (NEGATIVE); PROTEIN URINE NEGATIVE (NEGATIVE); UROBILINOGEN URINE 0.2 E.U./dL (0.2-1.0)
[2023-01-22 17:49] LABS: BASOPHILS % 0.3 % (0.0-2.0); HEMATOCRIT. 26.6 % (42.0-52.0); HEMOGLOBIN. 8.7 g/dL (14.0-18.0); LYMPHOCYTES % 16.1 % (20.0-50.0); MEAN CORPUSCULAR HEMOGLOBIN 30.8 pg (28.0-32.0); MEAN CORPUSCULAR VOLUME 94.1 fL (80.0-94.0); MEAN PLATELET VOLUME 6.9 fl (7.4-10.4); MONOCYTES % 7.1 % (2.0-8.0); NEUTROPHILS % 75.5 % (40.0-76.0); PLATELET 295 x1000/uL (130-400); RED BLOOD CELL COUNT 2.83 mill/uL (4.7-6.1); RED CELL DISTRIBUTION WIDTH 13.8 % (11.6-14.6)
[2023-01-23 00:04] VITALS: BP 134/69
[2023-01-23] MEDS ORDERED: DEXTROSE 50% WATER 50ML SYRINGE IV PRN (01:45)
[2023-01-23 04:00] VITALS: BP 100/64
[2023-01-23] MEDS: BLOOD SUGAR DIAGNOSTIC STRIP TEST SCH ×4 (05:54→21:14)
[2023-01-23 07:07] LABS: BASOPHILS % 0.3 % (0.0-2.0); EOSINOPHILS % 1.8 % (0.0-5.0); HEMATOCRIT. 26.9 % (42.0-52.0); HEMOGLOBIN. 8.8 g/dL (14.0-18.0); LYMPHOCYTES % 10.7 % (20.0-50.0); MEAN CORPUSCULAR HEMOGLOBIN 30.9 pg (28.0-32.0); MEAN CORPUSCULAR VOLUME 94.4 fL (80.0-94.0); MEAN PLATELET VOLUME 6.8 fl (7.4-10.4); MONOCYTES % 7.5 % (2.0-8.0); NEUTROPHILS % 79.7 % (40.0-76.0); PLATELET 283 x1000/uL (130-400); RED BLOOD CELL COUNT 2.85 mill/uL (4.7-6.1); RED CELL DISTRIBUTION WIDTH 13.9 % (11.6-14.6)
[2023-01-23 08:00] VITALS: BP 128/66
[2023-01-23] MEDS: PANTOPRAZOLE SODIUM 40 MG/VIAL IV SCH (08:22)
[2023-01-23 12:30] VITALS: BP 128/64
[2023-01-23] MEDS: PIPERACILLIN/TAZOBACTAM 3.375 G in DEXTROSE 5% WATER 50 ML IV SCH ×2 (15:16→21:14)
[2023-01-23 16:17] VITALS: BP 138/60
[2023-01-23] MEDS ORDERED: NALOXONE HCL 0.4MG/ML VIAL IV PRN (16:30)
[2023-01-23] MEDS: HYDROCODONE/ACETAMINOPHEN 5/325MG TABLET PO PRN ×2 (16:30→23:17)
[2023-01-23 20:00] VITALS: BP 130/67
[2023-01-24] VITALS: BP 149/75
[2023-01-24 04:00] VITALS: BP 131/81
[2023-01-24] MEDS: PIPERACILLIN/TAZOBACTAM 3.375 G in DEXTROSE 5% WATER 50 ML IV SCH ×2 (06:17→15:30)
[2023-01-24 06:39] LABS: HEMOGLOBIN 8.4 g/dL (14.0-18.0); MEAN CORPUSCULAR HEMOGLOBIN 29.9 pg (28.0-32.0); MEAN CORPUSCULAR VOLUME 92.9 fL (80.0-94.0); PLATELET 252 x1000/uL (130-400); RED BLOOD CELL COUNT 2.79 mill/uL (4.7-6.1); RED CELL DISTRIBUTION WIDTH 13.9 % (11.6-14.6)
[2023-01-24] MEDS: BLOOD SUGAR DIAGNOSTIC STRIP TEST SCH ×4 (06:58→21:19)
[2023-01-24 08:00] VITALS: BP 137/78
[2023-01-24] MEDS: PANTOPRAZOLE SODIUM 40 MG/VIAL IV SCH (08:58)
[2023-01-24] MEDS ORDERED: CIPR-264 MT ×2 (10:32)
[2023-01-24] MEDS ORDERED: EMPA25TA MT ×2 (10:32)
[2023-01-24 12:00] VITALS: BP 141/85
[2023-01-24] MEDS: ACETAMINOPHEN 650MG/20.3ML UDC PO PRN (12:50)
[2023-01-24] MEDS: SODIUM CHLORIDE 0.9% 1,000 ML IV SCH (15:38)
[2023-01-24] MEDS: HYDROCODONE/ACETAMINOPHEN 5/325MG TABLET PO PRN ×2 (15:53→21:11)
[2023-01-24 16:00] VITALS: BP 113/70
[2023-01-24 20:00] VITALS: BP 137/81
[2023-01-24] MEDS: MEROPENEM-0.9% SODIUM CHLORIDE 50 ML IV SCH (23:46)
[2023-01-25] VITALS (7 sets, daily range): BP systolic 130–172; BP diastolic 67–87
[2023-01-25] MEDS: SODIUM CHLORIDE 0.9% 1,000 ML IV SCH ×2 (02:09→13:28)
[2023-01-25] MEDS: HYDROCODONE/ACETAMINOPHEN 5/325MG TABLET PO PRN ×3 (03:15→23:54)
[2023-01-25 06:30] LABS: BASOPHILS % 0.4 % (0.0-2.0); EOSINOPHILS % 2.4 % (0.0-5.0); HEMATOCRIT. 24.9 % (42.0-52.0); MEAN CORPUSCULAR VOLUME 92.9 fL (80.0-94.0); MONOCYTES % 11.1 % (2.0-8.0); NEUTROPHILS % 67.1 % (40.0-76.0); PLATELET 223 x1000/uL (130-400); RED BLOOD CELL COUNT 2.68 mill/uL (4.7-6.1); RED CELL DISTRIBUTION WIDTH 13.6 % (11.6-14.6)
[2023-01-25] MEDS: BLOOD SUGAR DIAGNOSTIC STRIP TEST SCH ×4 (06:48→21:27)
[2023-01-25] MEDS: PANTOPRAZOLE SODIUM 40 MG/VIAL IV SCH (09:39)
[2023-01-25] MEDS: MEROPENEM-0.9% SODIUM CHLORIDE 50 ML IV SCH ×2 (09:39→21:21)
[2023-01-25] MEDS: ACETAMINOPHEN 650MG/20.3ML UDC PO PRN (09:42)
[2023-01-25] MEDS: CLONIDINE 0.1MG TABLET PO PRN ×2 (09:42→18:09)
[2023-01-25] MEDS ORDERED: POTASSIUM CHLORIDE 20MEQ TABLET SR PO NR (17:15)
[2023-01-26 04:00] VITALS: BP 132/58
[2023-01-26] MEDS: BLOOD SUGAR DIAGNOSTIC STRIP TEST SCH ×3 (06:09→17:07)
[2023-01-26 08:00] VITALS: BP 104/74
[2023-01-26] MEDS: SODIUM CHLORIDE 0.9% 1,000 ML IV SCH ×2 (08:35→11:37)
[2023-01-26] MEDS: MEROPENEM-0.9% SODIUM CHLORIDE 50 ML IV SCH (08:35)
[2023-01-26] MEDS: PANTOPRAZOLE SODIUM 40 MG/VIAL IV SCH (08:36)
[2023-01-26 11:35] VITALS: BP 160/72
[2023-01-26] MEDS: HYDROCODONE/ACETAMINOPHEN 5/325MG TABLET PO PRN (11:42)
[2023-01-26 16:30] VITALS: BP 166/80
[2023-01-26 16:35] VITALS: BP 166/80
[2023-01-26] MEDS ORDERED: MEROPENEM-0.9% SODIUM CHLORIDE 50 ML IV SCH (21:00)
== END 2023-01-26 17:35 | disposition home health service (06) | DRG 871 ==
LOC: ER 14:35 → 7EST 18:59 → EDBEDREQ 19:17 → ENRESERV 22:20
PROVIDERS: ADMIT Internal Medicine; ATTEND Internal Medicine
PROC: 5A09457 Assistance with Respiratory Ventilation, 24-96 Consecutive Hours, Continuous Positive Airway Pressure (ICD-10-PCS; 2023-01-23)
PROC: 02HV33Z Insertion of Infusion Device into Superior Vena Cava, Percutaneous Approach (ICD-10-PCS; principal; 2023-01-25)
PROC: B548ZZA Ultrasonography of Superior Vena Cava, Guidance (ICD-10-PCS; 2023-01-25)
DX: A41.9 Sepsis, unspecified organism (principal); N17.0 Acute kidney failure with tubular necrosis; N39.0 Urinary tract infection, site not specified; N40.0 Benign prostatic hyperplasia without lower urinary tract symptoms; E11.22 Type 2 diabetes mellitus with diabetic chronic kidney disease; N18.9 Chronic kidney disease, unspecified; I12.9 Hypertensive chronic kidney disease with stage 1 through stage 4 chronic kidney disease, or unspecified chronic kidney disease; J44.9 Chronic obstructive pulmonary disease, unspecified; K59.00 Constipation, unspecified; Z88.2 Allergy status to sulfonamides; Z90.49 Acquired absence of other specified parts of digestive tract; Z79.4 Long term (current) use of insulin; B96.1 Klebsiella pneumoniae [K. pneumoniae] as the cause of diseases classified elsewhere
CPT/HCPCS: 36415; 36573; 71045; 74176; 80048; 80053; 81003; 82962; 83036; 83605; 84145; 85025; 85027; 87186; 93970; 94660; 99291; C1725; C9113; J2185; J2405; J2543; J7030; J7060

== ENCOUNTER 2023-07-10 14:24 | Emergency (ER) | payer MEDICARE ==
[~2023-07-10] VITALS: Ht 172.7 cm; Wt 95.0 kg
[~2023-07-10 14:24] MED LIST changes: -DOXA8TAB81 PO; -LEVO750T68 MT; -LOSA100T32 PO; +LOSA100T33 PO; -METF-416 PO; -P50 MT
[2023-07-10 14:27] VITALS: O2SAT 98
[2023-07-10 15:39] LABS: BASOPHILS % 0.2 % (0.0-2.0); EOSINOPHILS % 0.2 % (0.0-5.0); HEMATOCRIT. 25.7 % (42.0-52.0); HEMOGLOBIN. 8.4 g/dL (14.0-18.0); LYMPHOCYTES % 13.1 % (20.0-50.0); MEAN CORPUSCULAR HEMOGLOBIN 30.4 pg (28.0-32.0); MEAN CORPUSCULAR HGB CONC 32.6 g/dL (31.0-37.0); MEAN CORPUSCULAR VOLUME 93.2 fL (80.0-94.0); MEAN PLATELET VOLUME 6.6 fl (7.4-10.4); NEUTROPHILS % 76.5 % (40.0-76.0); PLATELET 244 x1000/uL (130-400); RED BLOOD CELL COUNT 2.76 mill/uL (4.7-6.1); RED CELL DISTRIBUTION WIDTH 14.7 % (11.6-14.6); WHITE BLOOD COUNT 8.6 x1000/uL (4.5-11.0)
[2023-07-10 15:59] LABS: CHLORIDE 102 mEq/L (98-107); INDEX HEMOLYSI 1 (1-3); INDEX ICTERIC 1 (1-4); INDEX LIPEMIC 1 (1-3); POTASSIUM 3.7 mEq/L (3.5-5.1); SODIUM 134 mEq/L (136-145)
[2023-07-10 16:09] LABS: ALANINE AMINOTRANSFERASE 9 IU/L (13-61); ALBUMIN 3.1 g/dL (3.4-5.0); ASPARTATE AMINOTRANSFERASE 8 IU/L (15-37); BILIRUBIN TOTAL 0.8 mg/dL (0.1-1.0); CALCIUM 8.8 mg/dL (8.5-10.1); CARBON DIOXIDE 26 mEq/L (21-32); CREATININE 1.6 mg/dL (0.6-1.3); GLUCOSE 94 mg/dL (70-105); PROTEIN TOTAL 6.6 g/dL (6.0-8.3); UREA NITROGEN BLOOD 21 mg/dL (7-21)
[2023-07-10] MEDS ORDERED: IBUPROFEN 600MG TABLET PO STA (17:52)
[2023-07-10 18:06] LABS: CLARITY URINE CLOUDY (CLEAR); COLOR URINE YELLOW (YELLOW); GLUCOSE URINE NEGATIVE (NEGATIVE); KETONES URINE NEGATIVE (NEGATIVE); LEUKOCYTE ESTERASE URINE 3+ (NEGATIVE); NITRITE URINE NEGATIVE (NEGATIVE); OCCULT BLOOD URINE NEGATIVE (NEGATIVE); PROTEIN URINE 1+ (NEGATIVE); SPECIFIC GRAVITY URINE 1.012 (1.005-1.030)
[2023-07-10 18:26] LABS: BACTERIA URINE 3+; RBC URINE 0-2 /hpf (0-2); SQUAMOUS EPITHELIAL CELL URINE 1+ /lpf (RARE/1+); WBC URINE 15-25 /hpf (0-2)
[2023-07-10] MEDS ORDERED: IBUP-2029 MT (19:03)
[2023-07-10] MEDS ORDERED: LEVO-65 MT (19:03)
[2023-07-10] MEDS ORDERED: IBUPROFEN 600MG TABLET PO NR (19:45)
[2023-07-10 20:40] VITALS: BP 168/78; PULSE 83; RESP 16; TEMP 99
== END 2023-07-10 20:43 | disposition home or self-care (01) ==
LOC: ER 14:50
DX: N12 Tubulo-interstitial nephritis, not specified as acute or chronic (principal); J44.9 Chronic obstructive pulmonary disease, unspecified; E11.9 Type 2 diabetes mellitus without complications; I10 Essential (primary) hypertension; Z87.440 Personal history of urinary (tract) infections; Z79.899 Other long term (current) drug therapy
CPT/HCPCS: 36415; 74176; 80053; 81003; 85025; 87186; 93005; 99284

== ENCOUNTER 2024-06-21 18:15 | Inpatient (IN) | payer MEDICARE ==
[~2024-06-21] VITALS: Ht 182.9 cm; Wt 90.3 kg
[~2024-06-21 18:15] MED LIST changes: +ALBU18HF2 IH; +FLUT1DIS3 INH; +HYDR100T11 PO; -HYDR100T26 PO
[2024-06-21 20:23] LABS: BASOPHILS % 0.5 % (0.0-2.0); EOSINOPHILS % 3.8 % (0.0-5.0); HEMATOCRIT. 25.7 % (42.0-52.0); HEMOGLOBIN. 8.5 g/dL (14.0-18.0); LYMPHOCYTES % 14.3 % (20.0-50.0); MEAN CORPUSCULAR HEMOGLOBIN 32.9 pg (28.0-32.0); MEAN CORPUSCULAR VOLUME 99.6 fL (80.0-94.0); MEAN PLATELET VOLUME 7.4 fl (7.4-10.4); MONOCYTES % 10.1 % (2.0-8.0); NEUTROPHILS % 71.3 % (40.0-76.0); PLATELET 333 x1000/uL (130-400); RED BLOOD CELL COUNT 2.58 mill/uL (4.7-6.1); RED CELL DISTRIBUTION WIDTH 17.5 % (11.6-14.6); WHITE BLOOD COUNT 8.6 x1000/uL (4.5-11.0)
[2024-06-21 20:26] LABS: POTASSIUM 3.6 mEq/L (3.5-5.1)
[2024-06-21 20:27] LABS: CALCIUM 9.2 mg/dL (8.7-10.4)
[2024-06-21 20:32] LABS: CREATININE 1.9 mg/dL (0.6-1.3)
[2024-06-22] VITALS (8 sets, daily range): BP systolic 92–191; BP diastolic 56–86; PULSE 65–97; RESP 18–20; TEMP 36.114–36.50292; O2SAT 97–100
[2024-06-22 01:15] LABS: CLARITY URINE CLOUDY (CLEAR); COLOR URINE YELLOW (YELLOW); GLUCOSE URINE NEGATIVE (NEGATIVE); KETONES URINE NEGATIVE (NEGATIVE); LEUKOCYTE ESTERASE URINE 3+ (NEGATIVE); NITRITE URINE NEGATIVE (NEGATIVE); OCCULT BLOOD URINE NEGATIVE (NEGATIVE); PROTEIN URINE 1+ (NEGATIVE); SPECIFIC GRAVITY URINE 1.011 (1.005-1.030); UROBILINOGEN URINE 0.2 E.U./dL (0.2-1.0)
[2024-06-22 02:16] LABS: PARTIAL THROMBOPLASTIN TIME 33.5 sec (23.4-31.0); PROTHROMBIN TIME 11.4 sec (9.6-11.0)
[2024-06-22 03:05] LABS: SQUAMOUS EPITHELIAL CELL URINE FEW /lpf (RARE/1+)
[2024-06-22 03:07] LABS: BACTERIA URINE NONE SEEN; RBC URINE 0-2 /hpf (0-2); WBC URINE 50-100 /hpf (0-2)
[2024-06-22] MEDS ORDERED: ALBUTEROL 6.7GM HFA INHALER ORI PRN (03:45)
[2024-06-22] MEDS: CLONIDINE 0.1MG TABLET PO PRN (04:34)
[2024-06-22] MEDS: GABAPENTIN 300MG CAPSULE PO SCH (05:22)
[2024-06-22] MEDS: FLUTICASONE/VILANTEROL 200-25 BLST.W.DEV ORI SCH (05:22)
[2024-06-22] MEDS: TAMSULOSIN HCL 0.4MG SR CAPSULE PO SCH (09:08)
[2024-06-22] MEDS: HYDRALAZINE HCL 50MG TABLET PO SCH (09:08)
[2024-06-22] MEDS: LOSARTAN 50 MG TABLET PO SCH (09:08)
[2024-06-22] MEDS: FUROSEMIDE 40MG TABLET PO SCH (09:08)
[2024-06-22] MEDS: METOPROLOL TARTRATE 25MG TABLET PO SCH (09:09)
[2024-06-22] MEDS ORDERED: ACETAMINOPHEN 325MG TABLET PO PRN (17:30)
[2024-06-22] MEDS ORDERED: IPRATROPIUM/ALBUTEROL 0.5-3(2.5)MG/3ML NEB HHN PRN (17:30)
[2024-06-22] MEDS ORDERED: DOCUSATE SODIUM 100MG CAPSULE PO PRN (17:30)
[2024-06-22] MEDS ORDERED: ONDANSETRON HCL 4MG/2ML INJ IV PRN (17:30)
[2024-06-22 19:01] LABS: CREATINE KINASE 53 IU/L (46-171); CREATINE KINASE MB FRACTION 0.8 ng/mL (0.5-3.6)
[2024-06-22 19:02] LABS: TROPONIN I HIGH SENSITIVITY 20 ng/L (3.0-53)
[2024-06-22] MEDS: MEROPENEM 1G/100ML 100 ML IV SCH (19:07)
[2024-06-22] MEDS: DEXT 5%/0.45% NACL 1000ML 1,000 ML IV SCH (19:08)
[2024-06-22] MEDS: ENOXAPARIN 100MG/ML SYR SUBCUT SCH (19:08)
[2024-06-22] MEDS: LACTOBACILLUS GG CAPSULE PO SCH (19:42)
[2024-06-22 23:52] LABS: *AMPHETAMINES SCREEN URINE NEGATIVE (NEGATIVE); *BARBITURATES SCREEN URINE NEGATIVE (NEGATIVE); *BENZODIAZEPINES SCREEN URINE NEGATIVE (NEGATIVE); *COCAINE SCREEN URINE NEGATIVE (NEGATIVE); CANNABINOID URINE SCREEN NEGATIVE (NEGATIVE); ECSTASY MDMA SCREEN URINE NEGATIVE (NEGATIVE); METHADONE URINE SCREEN NEGATIVE (NEGATIVE); OPIATES URINE SCREEN NEGATIVE (NEGATIVE); PHENCYCLIDINE URINE SCREEN NEGATIVE (NEGATIVE)
[2024-06-23] VITALS: BP 167/85; PULSE 70; RESP 20; TEMP 36.22512; O2SAT 100
[2024-06-23 04:00] VITALS: BP 163/78; PULSE 83; RESP 20; TEMP 36.22512; O2SAT 98
[2024-06-23 06:57] LABS: BASOPHILS % 0.8 % (0.0-2.0); EOSINOPHILS % 4.6 % (0.0-5.0); HEMATOCRIT. 24.5 % (42.0-52.0); HEMOGLOBIN. 7.8 g/dL (14.0-18.0); LYMPHOCYTES % 18.8 % (20.0-50.0); MEAN CORPUSCULAR HEMOGLOBIN 31.8 pg (28.0-32.0); MEAN CORPUSCULAR HGB CONC 32.1 g/dL (31.0-37.0); MEAN CORPUSCULAR VOLUME 99.1 fL (80.0-94.0); MEAN PLATELET VOLUME 7.5 fl (7.4-10.4); MONOCYTES % 11.2 % (2.0-8.0); NEUTROPHILS % 64.6 % (40.0-76.0); PLATELET 308 x1000/uL (130-400); RED BLOOD CELL COUNT 2.47 mill/uL (4.7-6.1); WHITE BLOOD COUNT 6.8 x1000/uL (4.5-11.0)
[2024-06-23 07:03] LABS: CHLORIDE 108 mEq/L (98-107); POTASSIUM 3.4 mEq/L (3.5-5.1); SODIUM 141 mEq/L (136-145)
[2024-06-23 07:04] LABS: CALCIUM 9.2 mg/dL (8.7-10.4); CARBON DIOXIDE 25 mEq/L (21-32)
[2024-06-23 07:08] LABS: IRON 31 ug/dL (65-175)
[2024-06-23 07:09] LABS: BILIRUBIN TOTAL 0.3 mg/dL (0.1-1.0); CREATININE 1.7 mg/dL (0.6-1.3); GLUCOSE 94 mg/dL (70-105); TRIGLYCERIDE 109 mg/dL (0-150)
[2024-06-23 07:10] LABS: LDL CHOLESTEROL 54 mg/dL (5-100); UREA NITROGEN BLOOD 19 mg/dL (9-23)
[2024-06-23 07:11] LABS: ALANINE AMINOTRANSFERASE 10 IU/L (10-49); ALBUMIN 3.6 g/dL (3.2-4.8); ASPARTATE AMINOTRANSFERASE 9 IU/L (<34); BILIRUBIN DIRECT 0.1 mg/dL (<=3.0); CHOLESTEROL 104 mg/dL (<200); HDL CHOLESTEROL 27 mg/dL (>55); PHOSPHORUS 3.9 mg/dL (2.5-4.9); TOTAL IRON BINDING CAPACITY 194 ug/dl (250-425)
[2024-06-23 07:16] LABS: D-DIMER 2.99 mg/L FEU (<0.50); INR 1.1; PROTHROMBIN TIME 12.1 sec (9.6-11.0)
[2024-06-23 07:18] LABS: FERRITIN 158 ng/mL (22-322)
[2024-06-23 07:19] LABS: FOLIC ACID (FOLATE) SERUM 19.91 ng/mL (>5.38); VITAMIN B12 SERUM 467 pg/mL (211-911)
[2024-06-23] MEDS: PANTOPRAZOLE SODIUM 40 MG/VIAL IV SCH ×2 (09:27→22:13)
[2024-06-23] MEDS: MAGNESIUM 2 G PREMIX 50 ML IV SCH (10:28)
[2024-06-23] MEDS: CYANOCOBALAMIN 1000MCG/ML VIAL IM SCH (14:38)
[2024-06-23] MEDS: POTASSIUM CHLORIDE 20MEQ TABLET SR PO NR (14:38)
[2024-06-23] MEDS: VANCOMYCIN 250MG/5ML ORAL SYRINGE PO SCH (14:38)
[2024-06-23] MEDS: FERROUS SULFATE 325MG TABLET PO SCH (18:22)
[2024-06-23] MEDS: ACETAMINOPHEN 325MG TABLET PO PRN (18:24)
[2024-06-23 20:00] VITALS: BP 147/65; PULSE 71; RESP 18; TEMP 36.50292; O2SAT 98
[2024-06-23] MEDS: HYDRALAZINE HCL 50MG TABLET PO SCH (22:13)
[2024-06-24] VITALS: BP 139/61; PULSE 77; RESP 18; TEMP 36.6696; O2SAT 96
[2024-06-24 04:00] VITALS: BP 150/69; PULSE 70; RESP 16; TEMP 37.503; O2SAT 100
[2024-06-24 07:30] LABS: BASOPHILS % 0.6 % (0.0-2.0); EOSINOPHILS % 2.4 % (0.0-5.0); HEMATOCRIT. 25.1 % (42.0-52.0); LYMPHOCYTES % 13.6 % (20.0-50.0); MEAN CORPUSCULAR HEMOGLOBIN 31.7 pg (28.0-32.0); MEAN CORPUSCULAR HGB CONC 32.1 g/dL (31.0-37.0); MEAN CORPUSCULAR VOLUME 98.9 fL (80.0-94.0); MEAN PLATELET VOLUME 7.2 fl (7.4-10.4); MONOCYTES % 10.9 % (2.0-8.0); NEUTROPHILS % 72.5 % (40.0-76.0); PLATELET 310 x1000/uL (130-400); RED BLOOD CELL COUNT 2.53 mill/uL (4.7-6.1); WHITE BLOOD COUNT 8.1 x1000/uL (4.5-11.0)
[2024-06-24 07:52] LABS: CALCIUM 9.1 mg/dL (8.7-10.4); CARBON DIOXIDE 26 mEq/L (21-32); CHLORIDE 104 mEq/L (98-107); POTASSIUM 3.9 mEq/L (3.5-5.1); SODIUM 137 mEq/L (136-145)
[2024-06-24 07:58] LABS: CREATININE 1.7 mg/dL (0.6-1.3); GLUCOSE 102 mg/dL (70-105)
[2024-06-24 07:59] LABS: UREA NITROGEN BLOOD 19 mg/dL (9-23)
[2024-06-24 08:00] VITALS: BP 177/76; PULSE 77; RESP 18; TEMP 36.6696; O2SAT 98
[2024-06-24] MEDS: MAGNESIUM 1 G PREMIX 100 ML IV NR (11:08)
[2024-06-24 12:00] VITALS: BP 147/68; PULSE 82; RESP 18; TEMP 36.78072; O2SAT 97
[2024-06-24 16:00] VITALS: BP 151/72; PULSE 70; RESP 16; TEMP 36.72516; O2SAT 100
[2024-06-24 20:00] VITALS: BP 164/63; PULSE 87; RESP 16; TEMP 36.33624; O2SAT 99
[2024-06-25 07:18] LABS: CHLORIDE 100 mEq/L (98-107); POTASSIUM 3.4 mEq/L (3.5-5.1); SODIUM 134 mEq/L (136-145)
[2024-06-25 07:19] LABS: CALCIUM 8.7 mg/dL (8.7-10.4); CARBON DIOXIDE 24 mEq/L (21-32)
[2024-06-25 07:24] LABS: CREATININE 1.7 mg/dL (0.6-1.3); GLUCOSE 107 mg/dL (70-105); UREA NITROGEN BLOOD 20 mg/dL (9-23)
[2024-06-25 07:26] LABS: ALANINE AMINOTRANSFERASE 9 IU/L (10-49); ALBUMIN 3.5 g/dL (3.2-4.8); ASPARTATE AMINOTRANSFERASE 11 IU/L (<34); BASOPHILS % 0.7 % (0.0-2.0); BILIRUBIN DIRECT 0.1 mg/dL (<=3.0); BILIRUBIN TOTAL 0.4 mg/dL (0.1-1.0); EOSINOPHILS % 1.3 % (0.0-5.0); HEMATOCRIT. 24.1 % (42.0-52.0); HEMOGLOBIN. 8.1 g/dL (14.0-18.0); LYMPHOCYTES % 12.7 % (20.0-50.0); MEAN CORPUSCULAR HEMOGLOBIN 33.2 pg (28.0-32.0); MEAN CORPUSCULAR HGB CONC 33.6 g/dL (31.0-37.0); MEAN CORPUSCULAR VOLUME 98.8 fL (80.0-94.0); MEAN PLATELET VOLUME 7.5 fl (7.4-10.4); MONOCYTES % 8.9 % (2.0-8.0); NEUTROPHILS % 76.4 % (40.0-76.0); PHOSPHORUS 4.4 mg/dL (2.5-4.9); PLATELET 282 x1000/uL (130-400); RED BLOOD CELL COUNT 2.44 mill/uL (4.7-6.1); RED CELL DISTRIBUTION WIDTH 16.9 % (11.6-14.6); WHITE BLOOD COUNT 8.4 x1000/uL (4.5-11.0)
[2024-06-25 07:27] LABS: PROTEIN TOTAL 6.2 g/dL (6.0-8.3)
[2024-06-25 07:28] LABS: PROTHROMBIN TIME 11.5 sec (9.6-11.0)
[2024-06-25 08:00] VITALS: BP 141/59; PULSE 61; RESP 21; TEMP 36.44736; O2SAT 97
[2024-06-25 16:00] VITALS: BP 127/52; PULSE 80; RESP 18; TEMP 36.50292; O2SAT 99
[2024-06-25 20:00] VITALS: BP 144/61; PULSE 75; RESP 18; TEMP 36.00288; O2SAT 98
[2024-06-26] VITALS: BP 130/54; PULSE 71; RESP 19; TEMP 37.503; O2SAT 95
[2024-06-26 08:00] VITALS: BP 95/60; PULSE 65; RESP 18; TEMP 36.55848; O2SAT 99
[2024-06-26] MEDS ORDERED: LIDOCAINE HCL 1% 10 MG/ML 10ML VIAL ONE (09:36)
[2024-06-26 10:26] LABS: BASOPHILS % 0.6 % (0.0-2.0); HEMATOCRIT. 24.6 % (42.0-52.0); HEMOGLOBIN. 7.9 g/dL (14.0-18.0); LYMPHOCYTES % 10.6 % (20.0-50.0); MEAN CORPUSCULAR HEMOGLOBIN 31.4 pg (28.0-32.0); MEAN CORPUSCULAR HGB CONC 32.1 g/dL (31.0-37.0); MEAN CORPUSCULAR VOLUME 97.7 fL (80.0-94.0); MEAN PLATELET VOLUME 7.7 fl (7.4-10.4); MONOCYTES % 7.7 % (2.0-8.0); NEUTROPHILS % 78.1 % (40.0-76.0); PLATELET 294 x1000/uL (130-400); RED BLOOD CELL COUNT 2.52 mill/uL (4.7-6.1); RED CELL DISTRIBUTION WIDTH 16.7 % (11.6-14.6); WHITE BLOOD COUNT 8.5 x1000/uL (4.5-11.0)
[2024-06-26 10:32] LABS: CHLORIDE 101 mEq/L (98-107); POTASSIUM 3.4 mEq/L (3.5-5.1); SODIUM 133 mEq/L (136-145)
[2024-06-26 10:33] LABS: CALCIUM 8.5 mg/dL (8.7-10.4); CARBON DIOXIDE 24 mEq/L (21-32)
[2024-06-26 10:38] LABS: CREATININE 1.6 mg/dL (0.6-1.3); GLUCOSE 169 mg/dL (70-105); UREA NITROGEN BLOOD 20 mg/dL (9-23); URIC ACID 6.5 mg/dL (3.7-9.2)
[2024-06-26 10:40] LABS: ALANINE AMINOTRANSFERASE 11 IU/L (10-49); ALBUMIN 3.4 g/dL (3.2-4.8); ASPARTATE AMINOTRANSFERASE 12 IU/L (<34); BILIRUBIN DIRECT 0.1 mg/dL (<=3.0)
[2024-06-26 10:41] LABS: BILIRUBIN TOTAL 0.3 mg/dL (0.1-1.0); PHOSPHORUS 4.1 mg/dL (2.5-4.9); PROTEIN TOTAL 6.2 g/dL (6.0-8.3)
[2024-06-26 11:02] LABS: ERYTHROCYTE SEDIMENTATION RATE 97 mm/hr (0-20)
[2024-06-26 12:00] VITALS: BP 141/74; PULSE 85; RESP 19; TEMP 36.3918; O2SAT 97
[2024-06-26 14:31] LABS: BODY FLUID MONOCYTES 3 %
[2024-06-26 14:32] LABS: BODY FLUID RBC 550 /cu mm (0-2000); BODY FLUID WBC 8750 /cu mm (0-200)
[2024-06-26 16:00] VITALS: BP 134/52; PULSE 94; RESP 17; TEMP 36.28068; O2SAT 100
[2024-06-26] MEDS ORDERED: HYDROCODONE/ACETAMINOPHEN 5/325MG TABLET PO PRN (18:30)
[2024-06-26] MEDS ORDERED: NALOXONE HCL 0.4MG/ML VIAL IV PRN (18:45)
[2024-06-26] MEDS: POTASSIUM CHLORIDE 20MEQ TABLET SR PO NR (18:59)
[2024-06-26 20:00] VITALS: BP 129/78; PULSE 77; RESP 18; TEMP 36.6696; O2SAT 100
[2024-06-26] MEDS: MAGNESIUM 2 G PREMIX 50 ML IV NR (22:19)
[2024-06-27] VITALS: BP 117/68; PULSE 67; RESP 19; TEMP 36.50292; O2SAT 96
[2024-06-27 04:00] VITALS: BP 120/72; PULSE 70; RESP 20; TEMP 36.78072; O2SAT 100
[2024-06-27 06:38] LABS: CARBON DIOXIDE 27 mEq/L (21-32); CHLORIDE 102 mEq/L (98-107); POTASSIUM 4.1 mEq/L (3.5-5.1); SODIUM 133 mEq/L (136-145)
[2024-06-27 06:39] LABS: CALCIUM 8.7 mg/dL (8.7-10.4)
[2024-06-27 06:42] LABS: CREATININE 1.6 mg/dL (0.6-1.3)
[2024-06-27 06:43] LABS: GLUCOSE 105 mg/dL (70-105)
[2024-06-27 06:44] LABS: UREA NITROGEN BLOOD 22 mg/dL (9-23)
[2024-06-27 06:46] LABS: PHOSPHORUS 4.3 mg/dL (2.5-4.9)
[2024-06-27 06:56] LABS: BASOPHILS % 0.5 % (0.0-2.0); EOSINOPHILS % 3.9 % (0.0-5.0); HEMATOCRIT. 24.8 % (42.0-52.0); HEMOGLOBIN. 8.2 g/dL (14.0-18.0); LYMPHOCYTES % 14.1 % (20.0-50.0); MEAN CORPUSCULAR HEMOGLOBIN 31.9 pg (28.0-32.0); MEAN CORPUSCULAR HGB CONC 32.9 g/dL (31.0-37.0); MEAN PLATELET VOLUME 7.5 fl (7.4-10.4); MONOCYTES % 8.5 % (2.0-8.0); PLATELET 306 x1000/uL (130-400); RED BLOOD CELL COUNT 2.56 mill/uL (4.7-6.1); WHITE BLOOD COUNT 7.7 x1000/uL (4.5-11.0)
[2024-06-27 08:00] VITALS: BP 132/58; PULSE 71; RESP 18; TEMP 36.05844; O2SAT 98
[2024-06-27 12:00] VITALS: BP 112/53; PULSE 75; RESP 18; TEMP 36.16956; O2SAT 97
[2024-06-27 16:00] VITALS: BP 126/50; PULSE 74; RESP 18; TEMP 36.22512; O2SAT 100
[2024-06-27 20:00] VITALS: BP 131/55; PULSE 75; RESP 16; TEMP 36.61404; O2SAT 100
[2024-06-28] VITALS: BP 115/51; PULSE 77; RESP 17; TEMP 36.6696; O2SAT 100
[2024-06-28 04:00] VITALS: BP 105/57; PULSE 81; RESP 18; TEMP 36.55848; O2SAT 100
[2024-06-28 07:01] LABS: BASOPHILS % 0.8 % (0.0-2.0); LYMPHOCYTES % 17.8 % (20.0-50.0); MEAN CORPUSCULAR HEMOGLOBIN 30.8 pg (28.0-32.0); MEAN CORPUSCULAR HGB CONC 31.8 g/dL (31.0-37.0); MEAN CORPUSCULAR VOLUME 96.8 fL (80.0-94.0); MEAN PLATELET VOLUME 7.5 fl (7.4-10.4); MONOCYTES % 10.3 % (2.0-8.0); NEUTROPHILS % 66.1 % (40.0-76.0); PLATELET 303 x1000/uL (130-400); RED BLOOD CELL COUNT 2.58 mill/uL (4.7-6.1); RED CELL DISTRIBUTION WIDTH 15.9 % (11.6-14.6); WHITE BLOOD COUNT 6.9 x1000/uL (4.5-11.0)
[2024-06-28 07:10] LABS: CALCIUM 9.1 mg/dL (8.7-10.4); POTASSIUM 4.5 mEq/L (3.5-5.1)
[2024-06-28 07:16] LABS: CREATININE 1.7 mg/dL (0.6-1.3)
[2024-06-28 08:00] VITALS: BP 133/86; PULSE 70; RESP 16; TEMP 36.55848; O2SAT 100
[2024-06-28 12:00] VITALS: BP 127/64; PULSE 78; RESP 19; TEMP 36.55848; O2SAT 99
[2024-06-28 16:00] VITALS: BP 122/52; PULSE 75; RESP 16; TEMP 36.61404; O2SAT 98
[2024-06-28 20:00] VITALS: BP 118/46; PULSE 97; RESP 20; TEMP 36.33624; O2SAT 97
[2024-06-29] VITALS: BP 138/50; PULSE 82; RESP 20; TEMP 36.33624; O2SAT 97
[2024-06-29 04:00] VITALS: BP 136/59; PULSE 80; RESP 20; TEMP 36.22512
[2024-06-29 07:33] LABS: HEMATOCRIT. 23.4 % (42.0-52.0); HEMOGLOBIN. 7.8 g/dL (14.0-18.0); LYMPHOCYTES % 14.9 % (20.0-50.0); MEAN CORPUSCULAR HEMOGLOBIN 32.1 pg (28.0-32.0); MEAN CORPUSCULAR HGB CONC 33.3 g/dL (31.0-37.0); MEAN CORPUSCULAR VOLUME 96.3 fL (80.0-94.0); MEAN PLATELET VOLUME 7.5 fl (7.4-10.4); MONOCYTES % 10.1 % (2.0-8.0); PLATELET 290 x1000/uL (130-400); RED BLOOD CELL COUNT 2.43 mill/uL (4.7-6.1); RED CELL DISTRIBUTION WIDTH 16.4 % (11.6-14.6); WHITE BLOOD COUNT 7.2 x1000/uL (4.5-11.0)
[2024-06-29 07:34] LABS: POTASSIUM 4.3 mEq/L (3.5-5.1)
[2024-06-29 07:36] LABS: CALCIUM 9.1 mg/dL (8.7-10.4)
[2024-06-29 07:40] LABS: CREATININE 1.8 mg/dL (0.6-1.3)
[2024-06-29 08:00] VITALS: BP 122/64; PULSE 83; RESP 18; TEMP 36.61404; O2SAT 99
[2024-06-29 12:00] VITALS: BP 104/61; PULSE 79; RESP 18; TEMP 36.28068; O2SAT 99
[2024-06-29] MEDS ORDERED: VANC125C11 MT (13:49)
[2024-06-29] MEDS ORDERED: FERR325T23 MT (13:49)
[2024-06-29] MEDS ORDERED: LACT1CAP56 MT (13:49)
[2024-06-29] MEDS ORDERED: PROT40 MT (13:49)
[2024-06-29] MEDS ORDERED: APIX2.5T MT (13:49)
[2024-06-29] MEDS ORDERED: DOCU-138 MT (13:49)
[2024-06-29 14:42] VITALS: BP 104/61; PULSE 79; TEMP 97.3; O2SAT 99
[2024-06-29 16:00] VITALS: BP 139/64; PULSE 80; RESP 20; TEMP 36.3918; TEMP 36.39180; O2SAT 99
== END 2024-06-29 18:05 | disposition home health service (06) | DRG 315 ==
LOC: ER 18:15 → EDBEDREQTM 06-22 → EDBEDREQ 06-22 → 5WST 06-22 01:18 → 6WST 06-22 02:09
PROVIDERS: ADMIT Internal Medicine; ATTEND Internal Medicine
PROC: 0S9C3ZZ Drainage of Right Knee Joint, Percutaneous Approach (ICD-10-PCS; principal; 2024-06-26)
DX: T82.868A Thrombosis due to vascular prosthetic devices, implants and grafts, initial encounter (principal); A04.72 Enterocolitis due to Clostridium difficile, not specified as recurrent; N17.9 Acute kidney failure, unspecified; Z16.12 Extended spectrum beta lactamase (ESBL) resistance; N12 Tubulo-interstitial nephritis, not specified as acute or chronic; F17.210 Nicotine dependence, cigarettes, uncomplicated; G90.9 Disorder of the autonomic nervous system, unspecified; E11.22 Type 2 diabetes mellitus with diabetic chronic kidney disease; D53.9 Nutritional anemia, unspecified; M25.461 Effusion, right knee; I12.9 Hypertensive chronic kidney disease with stage 1 through stage 4 chronic kidney disease, or unspecified chronic kidney disease; Y83.8 Other surgical procedures as the cause of abnormal reaction of the patient, or of later complication, without mention of misadventure at the time of the procedure; J44.9 Chronic obstructive pulmonary disease, unspecified; N18.9 Chronic kidney disease, unspecified; D50.9 Iron deficiency anemia, unspecified; Z87.440 Personal history of urinary (tract) infections; Z88.2 Allergy status to sulfonamides; Z79.899 Other long term (current) drug therapy; Y92.89 Other specified places as the place of occurrence of the external cause
CPT/HCPCS: 20611; 36415; 73560; 78580; 80048; 80061; 80076; 80305; 81003; 82270; 82550; 82553; 82607; 82728; 82746; 83540; 83550; 83735; 83880; 84100; 84145; 84484; 84550; 85025; 85379; 85651; 87015; 87045; 87427; 87449; 87493; 88108; 88305; 88311; 88312; 89060; 93306; 93970; 93971; 97162; 97166; 99285; J1650; J2185; J2470; J3370; J3420; J3475; J3490